=== PATIENT | male | born 1950 ===

== ENCOUNTER → 2020-10-23 | Outpatient (CLI) | payer MEDICARE ==
--- NOTE | 2020-10-23 15:47 | RAD ---
EXAM: Bilateral carotid duplex with waveform analysis. CLINICAL HISTORY: Reason: rt leg numbness / Spl. Instructions: / History: . Bilateral leg numbness a nd essential hypertension. TECHNIQUE: Longitudinal and transverse sonographic images of the bilateral carotid arteries was perfo rmed utilizing grayscale, color and spectral Doppler techniques. COMPARISON: None FINDINGS: Right Carotid: Right common carotid artery is patent with no significant atherosclerosis, and a peak systolic velocity distally of 91 cm/s. There is bulky shadowing calcification in the right carotid bu lb and proximal internal carotid artery, with a maximal peak systolic velocity of the proximal chief of internal medicine al carotid artery of 155 cm's per second, constituting a ratio 1.6. Highest end-diastolic velocity se en within the mid internal carotid artery 49 cm/s. These findings correspond to 50 is 69 percent sten osis. Left Carotid: Left common carotid artery is widely patent with minimal atherosclerosis and a peak sys tolic velocity distally 103 cm/s. Once again there is bulky shadowing calcified atherosclerosis withi n the carotid bulb and proximal left internal carotid artery. Contrast measurable peak systolic veloc ity within the mid internal carotid artery is 121 cm/s, and highest end-diastolic velocity is seen pr oximally at 41 cm/s. These findings are borderline for 50 is 69 percent stenosis, and given that they are poststenotic measurement due to the dense shadowing from the patient's calcification, true steno sis in this range is suspected. Vertebrals: Antegrade flow bilaterally. IMPRESSION: 50-69 percent stenosis of both internal carotid arteries. Stenosis calculations for CT, MR and conventional angiography are based upon measurement of the dista l ICA diameter in accordance with the NASCET methodology. Stenosis calculations for carotid ultrasou nd studies are derived from validated velocity criteria which are known to correlate with the NASCET methodology. Consensus Panel Andrew-scale and Doppler US Criteria for Diagnosis of ICA Stenosis Degree of Stenosis (%) ICA PSV (Cm/sec) Plaque Estimate (%)* Normal <125 None <50 <125 <50 50-69 125-230 >50 >70 but < near occlusion >230 >50 Near occlusion High, low, or undetectable Visible Total occlusion Undetectable Visible, no detectable lumen *Plaque estimate (diameter reduction) with andrew-scale and color Doppler US Degree of Stenosis (%) ICA/CCA PSV Ratio ICA EDV (cm/sec) Normal <2.0 <40 <50 <2.0 <40 50-69 2.0-4.0 40-100 >70 but < near occlusion >4.0 >100 Near occlusion Variable Variable Total occlusion Not applicable Not applicable Electronically signed by: Jeevan Wilkinson MD (10/23/2020 3:44 PM) [id number]
== END ==
LOC: US 15:08
PROVIDERS: ATTEND Family Medicine
DX: I65.23 Occlusion and stenosis of bilateral carotid arteries (principal); I10 Essential (primary) hypertension; R20.0 Anesthesia of skin
CPT/HCPCS: 93880